=== PATIENT | male | born 1990 | race African-American/Black ===

== ENCOUNTER 2022-02-06 06:14 | Emergency (ER) | payer MEDICAID ==
[~2022-02-06] VITALS: Ht 172.7 cm; Wt 95.9 kg
[2022-02-06 06:39] VITALS: BP 129/78
[2022-02-06] MEDS ORDERED: FLUTICASONE PROPIONATE 50MCG/SPRAY BOTTLE BOTHNSTRLS STA (07:07)
[2022-02-06] MEDS ORDERED: ACETAMINOPHEN 650MG/20.3ML UDC PO ONE (07:45)
[2022-02-06] MEDS ORDERED: TOPUD PO (07:57)
[2022-02-06] MEDS ORDERED: AZIT250T12 PO (07:57)
== END 2022-02-06 08:14 | disposition home or self-care (01) ==
LOC: ER 06:14
DX: J32.9 Chronic sinusitis, unspecified (principal); Z20.822 Contact with and (suspected) exposure to COVID-19
CPT/HCPCS: 87426; 99283; C9803